=== PATIENT | male | born 1985 | race Asian ===

== ENCOUNTER 2016-12-03 22:37 | Emergency (ER) | payer OTHER ==
[~2016-12-03] VITALS: Ht 170.2 cm; Wt 74.8 kg
[2016-12-03 23:00] VITALS: BP 132/72
[2016-12-03] MEDS ORDERED: Hydrogen Peroxide 473ml Bottle TOPIC ONE (23:00)
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
[2016-12-03 23:15] VITALS: BP 132/72
== END 2016-12-03 23:17 | disposition home or self-care (01) ==
LOC: EMR 22:55
DX: Z77.21 Contact with and (suspected) exposure to potentially hazardous body fluids (principal)
CPT/HCPCS: 86703; 99282